=== PATIENT | male | born 1950 | race Caucasian/White ===

== ENCOUNTER → 2016-08-20 | Outpatient (CLI) | payer OTHER ==
[~2016-08-20] MED LIST: ABACAVIR300 MG PO; AMITRIPTYLINE H25 M3 PO; ASPIRIN EC325 M1 PO; ASPIRIN325 PO; COUMADIN 2.5MG2.5 M1 PO; COUMADIN 5 MG TA5 M1 PO; EPIVIR HBV PO; FENOFIBRATE160 MG PO; IMDUR 30 MG TAB30 M1 PO; LASIX 20 MG TAB20 MG PO; LIPITOR80 MG PO; LISINOPRIL2.5 MG PO; LOPRESSOR25 PO; NITROSTAT0.3 MG SUBLING; PEPCID40 MG PO; PLAVIX 75 MG TA75 M1 PO; PLAVIX 75 MG TA75 MG PO; QVAR8.7 G1 INH; SUSTIVA600 MG PO; VENTOLIN HFA 1818 GM INH; ZETIA10 MG PO
== END ==
LOC: RAD 11:01
DX: Z21 Asymptomatic human immunodeficiency virus [HIV] infection status (principal)

== ENCOUNTER → 2017-11-04 | Outpatient (CLI) | payer OTHER | LOC: RAD 13:26 | DX: E78.5 Hyperlipidemia, unspecified (principal) ==

== ENCOUNTER 2017-11-15 11:52 | Inpatient (IN) | payer OTHER ==
[~2017-11-15] VITALS: Ht 160 cm; Wt 53.9 kg
--- NOTE | ~2017-11-15 | HC ---
[facility] [place] [address] CONSULTATION Name: MEGAN CHOUDHURY Room #: 206-P ADM IN M.R.#: [id number] Admission: 11/15/17 Attend Phys: Josue Felipe MD Discharge: Date of : 50 Report #: [id number] THIS REPORT FOR: //name// CC: James Felipe DATE OF SERVICE: 11/16/2017 REASON FOR CONSULTATION: Elevated creatinine. HISTORY OF PRESENT ILLNESS: This is a 66-year-old male who has a rather complex medical history. Recently, he has been having increasing amounts of dyspnea. This has been accompanied by increasing lower extremity edema. He has a known cardiovascular history. About a week ago, he had been switched from some oral furosemide to oral torsemide, which he was taking 20 mg once a day. He was not getting further improvement in his edema nor in his dyspnea, so he ended up coming in, was admitted to the hospital. Overnight, he was put on some IV furosemide and he diuresed. He states he is actually breathing much better. He readily admits to the fact that he was not on a good sodium restriction at home when he was on the torsemide. We were also asked to see him for an elevated creatinine level. This has been a longstanding issue. I have records on the computer back to 2012 and 2013 when he ran creatinine levels in the 2.4 range. Occasionally, it was down lower than that to 2.0. Yesterday, he came with creatinine level of 3.3 and it is 3.2 today. In 2013, he was seen by one of my practice associates, Stephen Hernandez MD. That was when he had a creatinine level of about 2.4. Evaluation revealed changes consistent with chronic kidney disease, stage 3. It was thought to be due mostly to vascular and hypertensive issues. He does have a history of HIV that he had minimal proteinuria and therefore did not meet the typical presentation of HIV nephropathy. The patient has not been seen by a salary and wage administrator since that time. Unfortunately, there was a gap in his labs and I do not have any other labs between 2013 and 2018. In talking to the patient, he has no difficulty voiding urine including no dysuria, hematuria. He states he has no symptoms suggesting urinary retention. He used to have nocturia several times nightly, but more recently, he has 0-1 times nightly nocturia. He has no recent nonsteroidal exposures. No other nephrotoxins that I can find. He had change in the diuretics as noted above; otherwise, he is on his usual medications. PAST MEDICAL HISTORY: HIV. He has had that now for 20 some years dating back to the early 1990s. He has been on multiple different antiretrovirals and sounds like that has been fairly well controlled. He has coronary artery disease with previous myocardial infarction, coronary artery bypass graft surgery and stents. Dr. Rios's note reports a recent echocardiogram showing [facility] [address] [facility] [place] [address] CONSULTATION Name: MEGAN CHOUDHURY Room #: 206-P [facility] IN M.R.#: [id number] Admission: 11/15/17 Attend Phys: Josue Felipe MD Discharge: Date of : 50 Report #: [id number] ejection fraction of 35%-40% with mild aortic insufficiency. He also has chronic hypoxemia and apparently some COPD. He is on home nocturnal oxygen. He was tried on CPAP previously but could not tolerate it. He is unaware of what his oxygen rate is at home. He also had prior GI bleeds, hypertension, peripheral vascular disease, previous left carotid endarterectomy, also some femoral stents which had previously been placed. MEDICATIONS: On admission include torsemide 20 mg daily as well as some potassium replacement, abacavir 300 mg b.i.d., famotidine 40 mg daily, Plavix 75 mg daily, Epivir 100 mg daily, Sustiva 600 mg daily, Zetia 10 mg daily, atorvastatin 80 mg daily, fenofibrate 160 mg daily, isosorbide mononitrate 30 mg daily, QVAR inhaler and albuterol inhaler. ALLERGIES: No known medical allergies. FAMILY HISTORY: Negative for any renal disease. SOCIAL HISTORY: The patient is single, lives in [place], [place]. He is retired. REVIEW OF SYSTEMS: Mainly positive for the increasing lower extremity edema as well as the dyspnea. Denies orthopnea, PND, cough, chest pain or palpitations. Again, no difficulty voiding urine. Nocturia of only 0-1 time nightly. Denies nausea or vomiting. States his weight has been stable. Denies diarrhea. Unaware of fevers, chills or sweats. PHYSICAL EXAMINATION: GENERAL: A 66-year-old male, awake, alert and oriented and actually resting fairly comfortably at this time. VITAL SIGNS: Blood pressure 137/70, heart rate 73, temperature 97.2, oxygen saturation 100%. HEENT: Shows pupils are equal and reactive. Sclerae nonicteric. Oral mucosa is moist. NECK: Veins are not distended. Left neck shows a carotid endarterectomy scar, which is well healed. NECK: Supple. I hear no bruits. CHEST: Fairly clear bilaterally. BACK: Shows no CVA tenderness. HEART: Has a regular rate and rhythm. ABDOMEN: Has active bowel sounds, is soft, nontender at this time. No organomegaly or masses are palpable. Bladder is not distended by percussion or palpation. EXTREMITIES: Show 2+ bilateral lower extremity edema. No other edema noted. LABORATORY DATA: Sodium 134, potassium 4.1, chloride 100, bicarbonate 22, BUN 469, creatinine 3.2, glucose 108, calcium 8.5, phosphorus 5.5, albumin 3.4. [facility] [address] [place] [address] CONSULTATION Name: MEGAN CHOUDHURY Room #: 206-P ADM IN ..#: [id number] Admission: 11/15/17 Attend Phys: Josue Felipe MD Discharge: Date of : 50 Report #: [id number] Troponin 1.91. White count 7.1, hemoglobin 15.3, hematocrit 45.5, platelets 222,000. Differential on the white count 78 neutrophils, 12 lymphs, 9 monocytes. No urine studies done. ASSESSMENT: 1. Chronic kidney disease, which now looks to be stage IV. Four years ago, he was stage III, but looks like, he has worsened. I suspect this has been a more chronic change than an abrupt or acute change, although I do not have any interim labs to really help with that assessment. 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 I suspect that is still the case. Main thing we need to do at this time is check a urine for straight urinalysis as well as for urine protein excretion. I cannot find that he has received nephrotoxins. At this point, he is not uremic, but with creatinine level up over 3, this will be a more difficult problem to handle. 2. Volume overload with peripheral edema. He has actually responded nicely since admission to IV furosemide. I will keep him on that same regimen for now. Once he goes home, I think it is a good idea to go back home on the torsemide. Dietary sodium restriction at home will be very important and we were to begin discussions about that. 3. Atherosclerotic coronary artery disease, prior coronary artery bypass graft and stents. Troponin is up mildly. He is asymptomatic from an ischemic standpoint. 4. Extensive atherosclerotic vascular disease with prior carotid endarterectomy and lower extremity revascularization. 5. Human immunodeficiency virus, on multiple different medications. PLAN: 1. Recheck urine studies and reevaluate for proteinuria. 2. Continue the IV furosemide on a b.i.d. basis at this point. 3. Once he diuresis further, we can switch him back over to oral torsemide, which should be better fci due to improve GI absorption, efficacy across the loop of Henle, and longer duration of action. 4. Tighten sodium restriction. We will continue to work with him on that. We will follow along the care of this patient. By: [id number] Alphonso Hays MD /nt
--- NOTE | ~2017-11-15 | EKG ---
[place] [address] [employer] [address] [place] [address] ELECTROCARDIOGRAM REPORT Name: MEGAN CHOUDHURY Room #: 206-P ADM IN M.R.#: [id number] Admission: 11/15/17 Attend Phys: Josue Felipe MD Discharge: Date of : 50 Report #: [id number] THIS REPORT FOR: //name// [facility] ED Test Date: 2017-11-15 Test Time: 12:16:41 Pat Name: MEGAN CHOUDHURY Department: Room: Gender: M Room Service Manager: Merle SCHWARZ : 1950 Requested By: Sylvester Donaldson Order Number: [id number] MD: Jaime Rios Measurements Intervals [place] Rate: 86 P: 6 W[place]: 176 QRS: 112 QRSD: 164 T: -70 QT: 440 QTc: 527 Interpretive Statements Sinus rhythm Nonspecific intraventricular conduction delay Compared to ECG 11/28/2013 14:19:28 no significant change was found Electronically Signed On 11-16-2017 10:13:27 CDT by Jaime Rios [email or web address] <ELECTRONICALLY SIGNED> By: Jaime Rios MD, [facility] 11/16/17 1013 15 15 Jaime Rios MD, [facility] /EPI
--- NOTE | ~2017-11-15 | HC ---
[facility] [place] [place] [address] CONSULTATION Name: MEGAN CHOUDHURY Room #: 227-P ADM IN M.R.#: [id number] Admission: 11/15/17 Attend Phys: Josue Felipe MD Discharge: Date of : 50 Report #: [id number] THIS REPORT FOR: //name// CC: James Felipe DATE OF SERVICE: 11/15/2017 REASON FOR CONSULTATION: Shortness of breath, edema. HISTORY OF PRESENT ILLNESS: The patient is a 66-year-old gentleman with a complicated history including diffuse vascular disease with prior bypass grafting in 2001. He had a stent to the vein graft to the marginal branch in 2007. He is graft dependent with an occluded [place] vasculature and a patent left internal mammary to the left anterior descending and a graft system to the right coronary artery. He has had bilateral carotid stenting procedures, lower extremity peripheral revascularization procedures and now a 1-month history of progressive exertional breathlessness and lower extremity edema. Recent outpatient evaluation has included an echocardiogram demonstrating ejection fraction in the 35-40% range with mild aortic insufficiency. Renal Doppler demonstrated a moderately atrophic right kidney. There were 2 left renal arteries. The superior renal artery had a 90% stenosis. The right renal arteries were patent with mild plaquing. He does report a diet that is high in salt. He denies chest heaviness or pressure. He denies palpitations, near syncope or syncope. PAST MEDICAL HISTORY: Medical records have been reviewed and include a history of gastric bleeding remotely, mild to moderate ischemic cardiomyopathy, HIV, chronic kidney disease, chronic obstructive pulmonary disease on home oxygen, dyslipidemia, peripheral vascular disease, hypertension. SOCIAL HISTORY: He is retired from the banking business, former smoker. FAMILY HISTORY: Notable for premature coronary artery disease. REVIEW OF SYSTEMS: All systems negative except as that noted above. ALLERGIES: No known drug allergies. MEDICATIONS: Include Abacavir 300 mg twice daily, Pepcid, Plavix 75 mg daily, Sustiva 600 mg at night, Zetia 10 mg daily, atorvastatin 80 mg daily, fenofibrate, Imdur 30 mg daily, QVAR, and albuterol inhaler. PHYSICAL EXAMINATION: GENERAL: A pleasant gentleman, in no distress. VITAL SIGNS: Blood pressure is 117/59, heart rate of 83 [place] [address] CONSULTATION Name: MEGAN CHOUDHURY Room #: 227[facility] IN M.R.#: [id number] Admission: 11/15/17 Attend Phys: Josue Felipe MD Discharge: Date of : 50 Report #: [id number] afebrile, 5 feet 3 inches tall, 120 pounds. HEENT: There is neither xanthelasma, subcutaneous xanthomata, oral mucosal or digital cyanosis or kyphoscoliosis present. CHEST: Reveals diminished breath sounds at both bases. CARDIAC: Regular rate and rhythm with normal S1, S2. Jugular venous pressure is elevated to the angle of the mandible. ABDOMEN: Soft and nontender. EXTREMITIES: With 1+ to 2+ pedal edema. Radial pulses are 2+. NEUROLOGIC: Alert with a nonfocal exam. LABORATORY DATA: EKG, sinus rhythm with left bundle branch block. Sodium 141, potassium 3.8, creatinine 3.3, creatinine in 2014 was 2.5. ProBNP of 40,000. White count 6.2, hemoglobin 16, hematocrit 49, platelet count 243. Chest x-ray demonstrates interstitial lung disease, cardiomegaly. IMPRESSION: 1. Acute on chronic combined systolic and diastolic heart failure. 2. Cardiomyopathy, ejection fraction 35-40%. 3. 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 4. Coronary artery disease with remote bypass. 5. Peripheral vascular disease. 6. Left superior pole renal artery stenosis. 7. Dyslipidemia. 8. Hypertension. 9. Human immunodeficiency virus. RECOMMENDATIONS: 1. Postvoid residual. 2. IV Lasix. 3. Salt restriction was discussed. 4. Renal evaluation. Further thoughts will be forthcoming based on this evaluation. Thank you for asking me to participate in his care. <ELECTRONICALLY SIGNED> By: Jaime Rios MD, FACC 11/19/17 0800 180 26 Jaime Rios MD, FAC /nt
[2017-11-15 11:58] VITALS: BP 114/62
[2017-11-15 12:28] LABS: ABSOLUTE NEUTROPHILS 4.9 thou/uL (1.4-8.2); BASOPHILS 0.9 % (0.0-2.0); EOSINOPHILS 0.4 % (0.0-3.0); HEMATOCRIT 49.7 % (42.0-52.0); HEMOGLOBIN 16.8 gm/dL (14.0-18.0); LYMPHOCYTES 11.6 % (24.0-44.0); MCH 34.3 pg (26.0-34.0); MCHC 33.9 g/dL (28.0-37.0); MCV 101.1 fL (80.0-100.0); MONOCYTES 8.8 % (1.0-8.0); POLYS 78.3 % (36.0-66.0); RBC 4.91 mil/uL (4.50-6.00); RDW 12.9 % (10.5-14.5); WBC 6.2 thou/uL (4.0-11.0)
[2017-11-15 12:40] LABS: CALCIUM 9.2 mg/dL (8.5-10.1); CREATININE 3.3 mg/dL (0.7-1.3); POTASSIUM 3.8 mmol/L (3.5-5.1)
[2017-11-15 12:50] LABS: TROPONIN-I 0.81 ng/mL (<0.06)
[2017-11-15 13:10] LABS: PLATELET COUNT 243 thou/uL (150-400)
[2017-11-15 13:11] LABS: PLATELET ESTIMATE NORMAL
[2017-11-15 13:38] VITALS: BP 142/89
[2017-11-15 14:31] VITALS: BP 124/77
[2017-11-15 17:22] VITALS: BP 117/59
[2017-11-15 18:16] VITALS: BP 117/59
[2017-11-15 19:56] VITALS: BP 129/75
[2017-11-16 02:18] LABS: HEMATOCRIT 45.5 % (42.0-52.0); HEMOGLOBIN 15.3 gm/dL (14.0-18.0); MCH 33.6 pg (26.0-34.0); MCHC 33.7 g/dL (28.0-37.0); MCV 99.6 fL (80.0-100.0); RBC 4.57 mil/uL (4.50-6.00); RDW 12.8 % (10.5-14.5); WBC 7.1 thou/uL (4.0-11.0)
[2017-11-16 02:24] LABS: ALBUMIN 3.4 g/dL (3.4-5.0); CALCIUM 8.5 mg/dL (8.5-10.1); CREATININE 3.2 mg/dL (0.7-1.3); PHOSPHORUS 5.5 mg/dL (2.5-4.9); POTASSIUM 4.1 mmol/L (3.5-5.1)
[2017-11-16 04:22] VITALS: BP 124/68
[2017-11-16 08:12] VITALS: BP 137/70
[2017-11-16 12:37] VITALS: BP 144/69
[2017-11-16 13:51] LABS: URINE BILIRUBIN NEGATIVE (Negative); URINE BLOOD 2+ (Negative); URINE CLARITY CLEAR; URINE COLOR YELLOW; URINE GLUCOSE-RANDOM* NEGATIVE (Negative); URINE KETONES NEGATIVE (Negative); URINE LEUKOCYTES NEGATIVE (Negative); URINE NITRITE NEGATIVE (Negative); URINE PROTEIN (DIPSTICK) 1+ (Negative); URINE UROBILINOGEN 0.2 E.U./dl (0.2-1.0)
[2017-11-16 13:55] LABS: PROT/CREAT RATIO 1.6; URINE CREATININE-RANDOM* 55.7 mg/dL; URINE PROTEIN-RANDOM* 91.1 mg/dL (<11.9)
[2017-11-16 14:00] LABS: BACTERIA 1-9 Few /HPF (None Seen); CASTS None Seen /LPF (None Seen); CRYSTALS None Seen /LPF (None Seen); SQUAMOUS None Seen /LPF (0-3); URINE RBC 0-2 Rare /HPF (0-2); URINE WBC None Seen /HPF (0-5)
[2017-11-16 15:53] VITALS: BP 121/63
[2017-11-16 19:28] VITALS: BP 133/76
[2017-11-17 04:10] LABS: ALBUMIN 3.2 g/dL (3.4-5.0); CALCIUM 8.1 mg/dL (8.5-10.1); CREATININE 2.7 mg/dL (0.7-1.3); PHOSPHORUS 4.4 mg/dL (2.5-4.9); POTASSIUM 3.1 mmol/L (3.5-5.1)
[2017-11-17 04:14] VITALS: BP 120/52
[2017-11-17 05:36] LABS: HEMATOCRIT 43.4 % (42.0-52.0); HEMOGLOBIN 14.4 gm/dL (14.0-18.0); MCH 33.4 pg (26.0-34.0); MCHC 33.2 g/dL (28.0-37.0); MCV 100.3 fL (80.0-100.0); RBC 4.33 mil/uL (4.50-6.00); RDW 12.9 % (10.5-14.5); WBC 6.2 thou/uL (4.0-11.0)
[2017-11-17 08:28] VITALS: BP 140/67
[2017-11-17 11:45] VITALS: BP 126/62
[2017-11-17 16:01] VITALS: BP 135/69
[2017-11-17 19:45] VITALS: BP 122/63
[2017-11-18] MEDS ORDERED: PROTONIX40 M1 PO (01:35)
[2017-11-18] MEDS ORDERED: IRON240 M1 PO (01:37)
[2017-11-18] MEDS ORDERED: EPIVIR HBV100 MG PO (01:39)
[2017-11-18] MEDS ORDERED: PROAIR HFA8.5 GM INH (01:41)
[2017-11-18] MEDS ORDERED: POTASSIUM20 PO (01:41)
[2017-11-18] MEDS ORDERED: DEMADEX20 MG PO (01:42)
[2017-11-18 04:14] LABS: CALCIUM 8.3 mg/dL (8.5-10.1); CREATININE 2.6 mg/dL (0.7-1.3); POTASSIUM 3.1 mmol/L (3.5-5.1)
[2017-11-18 04:23] VITALS: BP 131/68
[2017-11-18 04:25] LABS: ABSOLUTE NEUTROPHILS 4.7 thou/uL (1.4-8.2); BASOPHILS 0.9 % (0.0-2.0); EOSINOPHILS 0.9 % (0.0-3.0); HEMATOCRIT 43.9 % (42.0-52.0); HEMOGLOBIN 14.8 gm/dL (14.0-18.0); LYMPHOCYTES 13.2 % (24.0-44.0); MCH 33.4 pg (26.0-34.0); MCHC 33.6 g/dL (28.0-37.0); MCV 99.5 fL (80.0-100.0); MONOCYTES 10.4 % (1.0-8.0); PLATELET COUNT 199 thou/uL (150-400); POLYS 74.6 % (36.0-66.0); RBC 4.42 mil/uL (4.50-6.00); RDW 12.8 % (10.5-14.5); WBC 6.3 thou/uL (4.0-11.0)
[2017-11-18 05:08] LABS: LARGE PLATELETS OCCASIONAL
[2017-11-18 07:45] VITALS: BP 133/63
[2017-11-18 12:34] VITALS: BP 124/60
[2017-11-18 19:48] VITALS: BP 116/67
[2017-11-19 07:45] LABS: ALBUMIN 3.1 g/dL (3.4-5.0); CALCIUM 8.5 mg/dL (8.5-10.1); CREATININE 3.1 mg/dL (0.7-1.3); PHOSPHORUS 4.7 mg/dL (2.5-4.9); POTASSIUM 3.3 mmol/L (3.5-5.1)
[2017-11-19 08:10] VITALS: BP 157/53
[2017-11-19 20:00] VITALS: BP 126/68
[2017-11-20 07:10] VITALS: BP 117/68
[2017-11-20 07:30] LABS: ABSOLUTE NEUTROPHILS 4.2 thou/uL (1.4-8.2); BASOPHILS 0.8 % (0.0-2.0); EOSINOPHILS 1.3 % (0.0-3.0); HEMATOCRIT 46.4 % (42.0-52.0); HEMOGLOBIN 15.6 gm/dL (14.0-18.0); LYMPHOCYTES 15.9 % (24.0-44.0); MCH 33.6 pg (26.0-34.0); MCHC 33.5 g/dL (28.0-37.0); MCV 100.3 fL (80.0-100.0); MONOCYTES 10.6 % (1.0-8.0); POLYS 71.4 % (36.0-66.0); RBC 4.62 mil/uL (4.50-6.00); RDW 12.8 % (10.5-14.5); WBC 5.9 thou/uL (4.0-11.0)
[2017-11-20 07:43] LABS: CALCIUM 8.8 mg/dL (8.5-10.1); CREATININE 2.7 mg/dL (0.7-1.3); POTASSIUM 3.7 mmol/L (3.5-5.1)
[2017-11-20 08:38] LABS: PLATELET COUNT 195 thou/uL (150-400)
[2017-11-20 08:47] VITALS: BP 117/68
[2017-11-20] MEDS ORDERED: ALDACTONE25 MG PO (12:43)
[2017-11-20] MEDS ORDERED: DEMADEX20 MG PO (12:43)
[2017-11-20] MEDS ORDERED: COZAAR 25 MG TA25 M1 PO (12:43)
[2017-11-20] MEDS ORDERED: TYLENOL325 MG PO (12:43)
== END 2017-11-20 15:36 | disposition home health service (06) | DRG 280 ==
LOC: ER 11:52 → EROBS 13:32 → 2N 13:32 → SICU 11-18 15:41 → ENTRNSPT 11-20 15:23 → EDTRNSPTSTS 11-20 15:26 → SICU 11-20 15:36
PROVIDERS: Emergency Medicine; Family Medicine; Hospitalist; Internal Medicine Nephrology
DX: I21.4 Non-ST elevation (NSTEMI) myocardial infarction (principal); I50.43 Acute on chronic combined systolic (congestive) and diastolic (congestive) heart failure; J96.91 Respiratory failure, unspecified with hypoxia; I13.0 Hypertensive heart and chronic kidney disease with heart failure and stage 1 through stage 4 chronic kidney disease, or unspecified chronic kidney disease; N17.9 Acute kidney failure, unspecified; N18.4 Chronic kidney disease, stage 4 (severe); I25.10 Atherosclerotic heart disease of native coronary artery without angina pectoris; I73.9 Peripheral vascular disease, unspecified; I25.5 Ischemic cardiomyopathy; J44.9 Chronic obstructive pulmonary disease, unspecified; E78.5 Hyperlipidemia, unspecified; I70.1 Atherosclerosis of renal artery; E87.70 Fluid overload, unspecified; E87.6 Hypokalemia; Z95.5 Presence of coronary angioplasty implant and graft; Z95.1 Presence of aortocoronary bypass graft; Z95.820 Peripheral vascular angioplasty status with implants and grafts; Z87.891 Personal history of nicotine dependence; Z82.49 Family history of ischemic heart disease and other diseases of the circulatory system; I25.2 Old myocardial infarction; Z21 Asymptomatic human immunodeficiency virus [HIV] infection status
CPT/HCPCS: 10194; 15002